=== PATIENT | female | born 1970 | race Caucasian/White ===

== ENCOUNTER 2021-08-13 06:28 | Day surgery (SDC) | payer OTHER ==
[2021-08-13] MEDS ORDERED: Sodium Chloride 0.9% 1,000 ML IV SCH (07:00)
[2021-08-13] MEDS ORDERED: Propofol 200 MG/20 ML SDV ONE (07:18)
[2021-08-13] MEDS ORDERED: Midazolam 1 MG/ML 2 ML SDV ONE (07:18)
[2021-08-13] MEDS ORDERED: fentaNYL 100 MCG/2 ML SDV ONE (07:18)
[2021-08-13 09:15] VITALS: BP 112/63; PULSE 65
--- NOTE | 2021-08-14 06:47 | OR ---
DATE OF PROCEDURE: 08/13/2021 SURGEON: Peter Watters MD PROCEDURE PERFORMED: Colonoscopy. FINDINGS: Diverticulosis, mild, mostly limited to sigmoid colon, without evidence of diverticulitis or bleeding. COMPLICATIONS: None. ENVELOPE MAKER: None. ANESTHESIA: MAC. PREOPERATIVE DIAGNOSIS: Screening colonoscopy. POSTOPERATIVE DIAGNOSIS: Screening colonoscopy. RISKS: Risks, benefits, alternatives, and limitations including, but not limited to infection, bleeding, perforation, false positives, and false negatives were explained to the patient who wished to proceed. PROCEDURE IN DETAIL: The patient was placed in the left lateral decubitus position. Digital exam was performed without abnormality. Scope was introduced and advanced atraumatically to the ileocecal valve. A photo was taken. The scope was brought back to the ascending, transverse, descending colon, and retroflexed. No evidence of old or new blood. No masses. No polyps. Diverticulosis described as mild into the sigmoid colon without evidence of diverticulitis or bleeding. Greater than 8 minutes spent on removing the scope. The prep was acceptable. Approximately 90% of the luminal surface could be seen. The patient tolerated the procedure well. Peter Watters MD /[id number]
== END 2021-08-13 09:22 | disposition home or self-care (01) ==
LOC: JP.SDS 06:28
PROVIDERS: ATTEND Surgery
DX: Z12.11 Encounter for screening for malignant neoplasm of colon (principal); K57.30 Diverticulosis of large intestine without perforation or abscess without bleeding
CPT/HCPCS: 45378; J2250; J2704; J3010; J7030